=== PATIENT | male | born 1995 | race African-American/Black ===

== ENCOUNTER 2024-11-08 20:58 | Inpatient (IN) | payer MEDICAID, OTHER ==
[~2024-11-08] VITALS: Ht 182.9 cm; Wt 81.0 kg
[~2024-11-08 20:58] MED LIST: HALOD100I IM
[2024-11-08] MEDS ORDERED: LORazepam 2 MG/ML VIAL ONE (21:32)
[2024-11-08] MEDS: LORazepam 2 MG/ML VIAL IM ONE (21:39)
[2024-11-08] MEDS: KETAMINE HCL 50 MG/ML 10 ML VIAL IM ONE (22:16)
[2024-11-08 22:37] LABS: PLATELET COUNT (AUTO) 257 K/uL (150-450); RED BLOOD CELL COUNT(AUTO) 4.86 MIL/uL (4.50-5.90); RED CELL DISTRIBUTION WIDTH 12.4 % (11.5-14.5); WHITE BLOOD COUNT (AUTO) 12.5 K/uL (4.5-11.0)
[2024-11-08] MEDS ORDERED: MIDAZOLAM HCL 5 MG/ML VIAL ONE (22:43)
[2024-11-08] MEDS: MIDAZOLAM HCL 5 MG/ML VIAL IVP ONE (22:45)
[2024-11-08 22:48] LABS: CALCIUM, TOTAL 9.3 mg/dL (8.8-10.5); CREATININE 1.26 mg/dL (0.60-1.30); GLOMERULAR FILTR. RATE CALC > 60 mL/min (>60); GLUCOSE,RANDOM 111 mg/dL (70-110); SODIUM SERUM 137 mmol/L (136-145); UREA NITROGEN, BLOOD 11 mg/dL (7-18)
[2024-11-08 22:55] LABS: ALCOHOL, BLOOD (SERUM) < 3 mg/dL (0-10)
[2024-11-08 23:00] LABS: ASPARTATE AMINOTRANSFERASE 40 U/L (15-37); TOTAL PROTEIN, SERUM 7.2 g/dL (6.4-8.2)
[2024-11-09] MEDS ORDERED: HYDROCODONE/ACETAMINOPHEN 5-325 MG TABLET PO PRN (02:00)
[2024-11-09] MEDS ORDERED: BISACODYL 10 MG RECTAL RECTAL SUPPOSITORY PR PRN (02:00)
[2024-11-09] MEDS ORDERED: MAGNESIUM HYDROXIDE SUSPENSION 30 ML UDCUP PO PRN (02:00)
[2024-11-09] MEDS ORDERED: ONDANSETRON HCL 4 MG/2 ML VIAL IVP PRN (02:00)
[2024-11-09] MEDS ORDERED: DEXTROSE 5%-0.45% SODIUM CHL 500 ML IV ONE (02:00)
[2024-11-09] MEDS ORDERED: MORPHINE SULFATE 2 MG/ML SYRINGE IVP PRN (02:00)
[2024-11-09] MEDS: DEXTROSE 5%-0.45% SODIUM CHL 500 ML IV ONE (02:22)
[2024-11-09 04:38] LABS: COVID AG,FIA SOURCE NPH
[2024-11-09 04:43] LABS: SARS-COV2 (COVID) ANTIGEN,FIA Negative (Negative)
[2024-11-09] MEDS: POTASSIUM CHLORIDE 20 MEQ ER TABLET PO ONE (05:21)
[2024-11-09] MEDS: HEPARIN SODIUM,PORCINE 5,000 UNITS/ML VIAL SQ SCH (07:31)
[2024-11-09] MEDS: MIDAZOLAM HCL 5 MG/ML VIAL IVP ONE (08:31)
[2024-11-09] MEDS: DOCUSATE SODIUM 100 MG CAPSULE PO SCH (08:54)
[2024-11-09] MEDS: PANTOPRAZOLE SODIUM 40 MG DR TABLET PO SCH (08:55)
[2024-11-09 09:53] VITALS: BP 120/71; PULSE 68; RESP 18; TEMP 98.1; O2SAT 99
[2024-11-09 13:23] VITALS: BP 122/71; PULSE 65; RESP 18; TEMP 98; O2SAT 98
[2024-11-09] MEDS ORDERED: SODIUM CHLORIDE 0.9% 1,000 ML ONE ×2 (13:28→14:33)
[2024-11-09] MEDS: SODIUM CHLORIDE 0.9% 1,000 ML IV ONE (14:00)
[2024-11-09 20:28] VITALS: BP 128/99; PULSE 68; RESP 19; TEMP 98.1; O2SAT 98
[2024-11-09] MEDS: ACETAMINOPHEN 325 MG TABLET PO PRN (21:17)
[2024-11-10 00:50] VITALS: BP 112/72; PULSE 50; RESP 18; TEMP 97.9; O2SAT 97
[2024-11-10 05:59] VITALS: BP 121/75; PULSE 62; RESP 19; TEMP 97.9; O2SAT 95
[2024-11-10] MEDS ORDERED: LIDOCAINE/PF 2% 5 ML VIAL IARTIC ONE (11:35)
[2024-11-10] MEDS ORDERED: PROPOFOL 1% 20 ML VIAL IVP ONE (11:35)
[2024-11-10 13:36] LABS: PLATELET COUNT (AUTO) 231 K/uL (150-450); RED BLOOD CELL COUNT(AUTO) 4.81 MIL/uL (4.50-5.90); RED CELL DISTRIBUTION WIDTH 12.9 % (11.5-14.5); WHITE BLOOD COUNT (AUTO) 6.2 K/uL (4.5-11.0)
[2024-11-10 13:46] LABS: CALCIUM, TOTAL 8.8 mg/dL (8.8-10.5); CREATININE 0.79 mg/dL (0.60-1.30); GLOMERULAR FILTR. RATE CALC > 60 mL/min (>60); GLUCOSE,RANDOM 123 mg/dL (70-110); SODIUM SERUM 140 mmol/L (136-145); UREA NITROGEN, BLOOD 10 mg/dL (7-18)
[2024-11-10 17:40] VITALS: BP 124/81; PULSE 58; RESP 18; TEMP 98.3; O2SAT 97
[2024-11-10 20:17] VITALS: BP 114/76; PULSE 53; RESP 18; TEMP 98.1; O2SAT 100
[2024-11-11 00:29] VITALS: BP 122/76; PULSE 52; RESP 18; TEMP 97.7; O2SAT 100
[2024-11-11 08:06] VITALS: BP 126/77; PULSE 47; RESP 18; TEMP 97.7; O2SAT 98
[2024-11-11] MEDS: ETHYL ALCOHOL 62% ANTISEPTIC NASAL SANITIZER 0.6 ML AMPUL NASAL SCH (08:20)
[2024-11-11] MEDS ORDERED: OLAN10TA74 PO (12:12)
== END 2024-11-11 14:45 | DRG 394 ==
LOC: EMS 21:00 → EDH 11-09 01:50 → 5N 11-09 09:25
PROVIDERS: ADMIT Internal Medicine; ATTEND Internal Medicine
PROC: 0DC68ZZ Extirpation of Matter from Stomach, Via Natural or Artificial Opening Endoscopic (ICD-10-PCS; principal; 2024-11-09 15:00)
PROC: GZ58ZZZ Individual Psychotherapy, Cognitive-Behavioral (ICD-10-PCS; 2024-11-10)
PROC: GZ56ZZZ Individual Psychotherapy, Supportive (ICD-10-PCS; 2024-11-10)
DX: T18.2XXA Foreign body in stomach, initial encounter (principal); F20.0 Paranoid schizophrenia; E87.6 Hypokalemia; F32.A Depression, unspecified; F41.9 Anxiety disorder, unspecified; Z20.822 Contact with and (suspected) exposure to COVID-19; G47.00 Insomnia, unspecified; W44.8XXA Other foreign body entering into or through a natural orifice, initial encounter; Y93.89 Activity, other specified; Y92.148 Other place in prison as the place of occurrence of the external cause; Y99.8 Other external cause status
CPT/HCPCS: 71045; 74018; 74176; 80048; 80053; 80178; 84443; 85025; 87081; 93005; G0480; G0481; J1200; J1630; J1644; J2060; J2250; J2704; J3490; J7030; J7060; 36415-L1; 36415-TC; Z7610